=== PATIENT | female | born 1995 | race Caucasian/White ===

== ENCOUNTER 2021-10-07 14:12 | Emergency (ER) | payer OTHER ==
[~2021-10-07] VITALS: Ht 165.1 cm; Wt 59.0 kg
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
[2021-10-07 15:49] LABS: BASOPHILS # (AUTO) 0.1 K/uL (0.0-0.2); BASOPHILS % (AUTO) 0.6 % (0.0-2.0); EOSINOPHILS % (AUTO) 0.6 % (0.0-6.0); HEMATOCRIT 40 % (33-45); HEMOGLOBIN 13.3 g/dL (11.5-14.8); LYMPHOCYTES # (AUTO) 1.8 K/uL (0.8-4.8); LYMPHOCYTES % (AUTO) 19.5 % (20.0-44.0); MEAN CORPUSCULAR HGB CONC 34 g/dl (31.0-36.0); MEAN CORPUSCULAR VOLUME 87 fL (82-100); MONOCYTES # (AUTO) 0.4 K/uL (0.1-1.30); MONOCYTES % (AUTO) 4.1 % (2.0-12.0); NEUTROPHILS # (AUTO) 6.8 K/uL (1.8-8.9); NEUTROPHILS % (AUTO) 75.2 % (43.0-81.0); PLATELET COUNT (AUTO) 349 K/uL (150-450); RED BLOOD CELL COUNT(AUTO) 4.55 MIL/uL (4.0-5.2); WHITE BLOOD COUNT (AUTO) 9.1 K/uL (4.3-11.0)
[2021-10-07 16:13] LABS: BILIRUBIN,URINE NEGATIVE (NEGATIVE); COLOR,URINE YELLOW (YELLOW); LEUKOCYTE ESTERASE ,URINE SMALL (NEGATIVE); NITRITE, URINE NEGATIVE (NEGATIVE); PROTEIN,URINE NEGATIVE (NEGATIVE); UGLUCOSE NEGATIVE (NEGATIVE); UROBILINOGEN,URINE 0.2 EU/dL (0.2)
[2021-10-07 16:18] LABS: BACTERIA,URINE 2+ /HPF (None Seen); RBC,URINE 21-50 /HPF (0-2)
[2021-10-07] MEDS ORDERED: IBUPROFEN 600 MG TABLET PO ONE (16:30)
[2021-10-07] MEDS ORDERED: DOXY100T2 PO (16:33)
[2021-10-07] MEDS ORDERED: METR500T PO (16:33)
[2021-10-07] MEDS ORDERED: HYDR-4303 PO (16:33)
[2021-10-07] MEDS ORDERED: IBUPROFEN 600 MG TABLET ONE (16:37)
[2021-10-07] MEDS ORDERED: FLUC150T PO (16:40)
--- NOTE | 2021-10-07 17:23 | NUR ---
Patient discharged to home in stable condition. Written and verbal after care instructions given. Patient verbalizes understanding of instruction.
[2021-10-07 17:24] VITALS: BP 126/82
== END 2021-10-07 17:25 | disposition home or self-care (01) ==
LOC: ER 14:16
DX: O03.4 Incomplete spontaneous abortion without complication (principal); Z79.899 Other long term (current) drug therapy
CPT/HCPCS: 36415; 76856-TC; 81001; 84702-TC; 85025-TC; 86850-TC; 87086-TC

== ENCOUNTER 2021-11-15 23:11 | Emergency (ER) | payer OTHER ==
[~2021-11-15] VITALS: Ht 165.1 cm; Wt 56.7 kg
[~2021-11-15 23:11] MED LIST: DOXY100T2 PO; FLUC150T PO; HYDR-4303 PO; METR500T PO
[2021-11-15 23:35] VITALS: BP 127/75
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
[2021-11-15] MEDS ORDERED: LEVO1.5T38 PO (23:42)
[2021-11-15] MEDS ORDERED: CEPH500T PO (23:42)
[2021-11-15] MEDS ORDERED: FLUC150T PO (23:42)
--- NOTE | 2021-11-15 23:46 | NUR ---
Patient discharged to home in stable condition. Written and verbal after care instructions given. Patient verbalizes understanding of instruction. RX given
== END 2021-11-15 23:47 | disposition home or self-care (01) ==
LOC: ER 23:23
DX: L03.011 Cellulitis of right finger (principal); Z87.19 Personal history of other diseases of the digestive system; Z79.891 Long term (current) use of opiate analgesic; Z79.899 Other long term (current) drug therapy; Z60.2 Problems related to living alone

== ENCOUNTER 2021-11-18 22:07 | Emergency (ER) | payer OTHER ==
[~2021-11-18] VITALS: Ht 165.1 cm; Wt 56.2 kg
[~2021-11-18 22:07] MED LIST changes: +CEPH500T PO; +LEVO1.5T38 PO
[2021-11-18 22:20] VITALS: BP 143/89
[2021-11-18] MEDS ORDERED: LIDOCAINE 1%-EPI 1:100,000 20 ML VIAL ONE (22:58)
[2021-11-18] MEDS ORDERED: LIDOCAINE 2% 20 ML MDV ONE (23:03)
[2021-11-18] MEDS ORDERED: IBUPROFEN 600 MG TABLET ONE (23:30)
[2021-11-18] MEDS ORDERED: LIDOCAINE HCL/PF 1% 30 ML VIAL IM ONE (23:30)
[2021-11-18] MEDS ORDERED: IBUPROFEN 600 MG TABLET PO ONE (23:30)
[2021-11-19] MEDS ORDERED: KETOROLAC TROMETHAMINE INJ 30 MG/ML VIAL IM ONE
[2021-11-19] MEDS ORDERED: LIDO30CR TP (00:01)
[2021-11-19] MEDS ORDERED: IBUP800T54 PO (00:01)
[2021-11-19] MEDS ORDERED: TDAP [DIPH/PERTUSSIS/TET] 0.5 ML VIAL IM ONE ×2 (00:11)
[2021-11-19] MEDS ORDERED: KETOROLAC TROMETHAMINE 15 MG/ML VIAL ONE (00:11)
--- NOTE | 2021-11-19 00:45 | NUR ---
Patient discharged to home in stable condition. Written and verbal after care instructions given. Patient verbalizes understanding of instruction.
== END 2021-11-19 00:45 | disposition home or self-care (01) ==
LOC: ER 22:07
DX: L03.011 Cellulitis of right finger (principal); F17.200 Nicotine dependence, unspecified, uncomplicated; Z87.19 Personal history of other diseases of the digestive system; Z60.2 Problems related to living alone; Z79.1 Long term (current) use of non-steroidal anti-inflammatories (NSAID); Z79.891 Long term (current) use of opiate analgesic; Z79.899 Other long term (current) drug therapy
CPT/HCPCS: 26010; 90471; 90715; 96372; 99284; J1885; J3490

== ENCOUNTER 2023-04-26 20:32 | Emergency (ER) | payer BC, OTHER ==
[~2023-04-26] VITALS: Ht 165.1 cm; Wt 59.0 kg
[~2023-04-26 20:32] MED LIST changes: +IBUP800T54 PO; +LIDO30CR TP
[2023-04-26 20:42] VITALS: BP 126/64; TEMP 98.5; O2SAT 98
--- NOTE | 2023-04-26 20:42 | NUR ---
BIBSELF FROM HOME REQUESTING STD CHECK, HAS NEW PARTNER. DENIES S/SX
--- NOTE | 2023-04-26 20:44 | NUR ---
URINE COLLECTED AND SENT TO LAB
[2023-04-26] MEDS ORDERED: CEFTRIAXONE 500 MG VIAL IM ONE (21:00)
[2023-04-26] MEDS ORDERED: CEFTRIAXONE 500 MG VIAL ONE (21:06)
[2023-04-26] MEDS ORDERED: LIDOCAINE /MPF 1% VIAL 5 ML VIAL ONE (21:06)
[2023-04-26 21:29] LABS: BILIRUBIN,URINE NEGATIVE (NEGATIVE); COLOR,URINE YELLOW (YELLOW); LEUKOCYTE ESTERASE ,URINE NEGATIVE (NEGATIVE); NITRITE, URINE NEGATIVE (NEGATIVE); PROTEIN,URINE NEGATIVE (NEGATIVE); UGLUCOSE NEGATIVE (NEGATIVE); UROBILINOGEN,URINE 0.2 EU/dL (0.2)
[2023-04-26 21:34] LABS: BACTERIA,URINE 2+ /HPF (None Seen); MUCUS,URINE Many /LPF (None Seen); SQUAMOUS EPITHELIAL CELL,UR 21-50 /HPF (None Seen); WBC,URINE 0-2 /HPF (0-3)
[2023-04-26] MEDS ORDERED: DOXY100C2 PO (21:54)
--- NOTE | 2023-04-26 21:58 | NUR ---
Patient discharged to home in stable condition. RX Written and verbal after care instructions given. Patient verbalizes understanding of instruction.
== END 2023-04-26 21:59 | disposition home or self-care (01) ==
LOC: ER 20:34
DX: A64 Unspecified sexually transmitted disease (principal); F17.200 Nicotine dependence, unspecified, uncomplicated; Z60.2 Problems related to living alone; Z79.899 Other long term (current) drug therapy
CPT/HCPCS: 99283; 96372; 87086; 84703; 81001; 87491; 87591; J0696; J3490

== ENCOUNTER → 2024-04-14 | Emergency (ER) | payer BC ==
[~2024-04-14] VITALS: Ht 165.1 cm; Wt 63.5 kg
[~2024-04-14] MED LIST changes: +ACET-2030 PO; +DOXY100C2 PO; +IBUP-1957 PO
[2024-04-14] MEDS: ACETAMINOPHEN ES 500 MG TABLET PO ONE (14:14)
[2024-04-14 14:15] VITALS: BP 120/74; TEMP 97.8; O2SAT 99
== END | disposition home or self-care (01) ==
LOC: ER 11:44
DX: S06.0X0A Concussion without loss of consciousness, initial encounter (principal); R51.9 Headache, unspecified; F17.200 Nicotine dependence, unspecified, uncomplicated; F12.10 Cannabis abuse, uncomplicated; Z60.2 Problems related to living alone; V43.52XA Car driver injured in collision with other type car in traffic accident, initial encounter; Y93.89 Activity, other specified; Y92.488 Other paved roadways as the place of occurrence of the external cause; Y99.8 Other external cause status
CPT/HCPCS: 70450-TC

== ENCOUNTER 2024-06-06 20:03 | Emergency (ER) | payer BC ==
[~2024-06-06] VITALS: Ht 165.1 cm; Wt 63.5 kg
[2024-06-06 20:50] VITALS: BP 157/93; TEMP 98; O2SAT 98
[2024-06-06] MEDS ORDERED: ACETAMINOPHEN ES 500 MG TABLET ONE (21:08)
[2024-06-06] MEDS ORDERED: IBUPROFEN 600 MG TABLET ONE (21:08)
[2024-06-06] MEDS: ACETAMINOPHEN ES 500 MG TABLET PO ONE (21:10)
[2024-06-06] MEDS: IBUPROFEN 600 MG TABLET PO ONE (21:10)
[2024-06-06] MEDS ORDERED: HYDR-4303 PO (22:22)
[2024-06-06] MEDS ORDERED: ACET-2605 PO (22:22)
[2024-06-06] MEDS ORDERED: IBUP-1955 PO (22:22)
== END 2024-06-06 22:42 | disposition home or self-care (01) ==
LOC: ER 20:06
DX: S82.891A Other fracture of right lower leg, initial encounter for closed fracture (principal); F41.9 Anxiety disorder, unspecified; F12.10 Cannabis abuse, uncomplicated; F17.200 Nicotine dependence, unspecified, uncomplicated; Z87.19 Personal history of other diseases of the digestive system; Z60.2 Problems related to living alone; W18.49XA Other slipping, tripping and stumbling without falling, initial encounter; Y93.89 Activity, other specified; Y92.89 Other specified places as the place of occurrence of the external cause; Y99.8 Other external cause status
CPT/HCPCS: 73610-TC